=== PATIENT | female | born 1955 | race Caucasian/White ===

== ENCOUNTER → 2016-06-10 | Outpatient (CLI) | payer OTHER ==
--- NOTE | 2016-06-10 14:03 | MOTOR CONDUCTION ---
REQUESTING PHYSICIAN: Erin Villatoro MD CLINICAL DIAGNOSES: Episodes of confusion, question complex partial seizures. EEG DIAGNOSIS: Essentially normal during wakefulness. DESCRIPTION OF TRACING: This EEG was obtained in the laboratory. This was of good technical quality without any significant muscle and movement artifacts. A simultaneous video analysis of patient movement and behavior was obtained. Photic stimulation was performed. Drowsiness and light sleep were not recorded. During wakefulness, there was evidence for a normal appearing background rhythm in the alpha range of up to 10 Hz of maximum frequency and 30 microvolts of maximum amplitude. This was maximum posterior head regions bilaterally symmetrical. Polymorphic mid frequency theta activity was seen over all head regions without clear focal or regional predominance. Anterior head region maximum bilaterally symmetrical low voltage fast activity in the beta range was present. Photic stimulation provokes a modest driving response without a photoparoxysmal or photomyogenic component. At no time during the waking tracing is there evidence for potentially epileptogenic activity in the form of polyspike or spike wave bursts, focal sharp waves or focal spikes. INTERPRETATION: This electroencephalogram is essentially normal during wakefulness without evidence for focal or generalized encephalopathy and without evidence for potentially epileptogenic activity. MTDD
== END | disposition home or self-care (01) ==
LOC: C.NEUR 11:28
PROVIDERS: ATTEND Psychiatry & Neurology Neurology
DX: R41.0 Disorientation, unspecified (principal)

== ENCOUNTER 2022-08-03 05:45 | Observation (INO) ==
--- NOTE | 2022-07-10 11:15 | PAT Medication Instructions ---
Medication Instructions Date of Service July 10, 2022 Home Medications Medication Instructions Recorded diclofenac sodium 1 % topical gel See Rx Instructions topical 09/19/20 (Voltaren) .COMPLEX PRN arthritis #100 grams cyclobenzaprine 5 mg tablet 5 mg PO BID PRN muscle spasm #30 03/02/22 tabs celecoxib 100 mg capsule 100 mg PO BID #180 caps 04/20/22 multivitamin with minerals (Hair,Skin and Nails tablet) 2 tab PO QAM aspirin 81 mg tablet,delayed release 81 mg PO QAM diclofenac sodium 1 % topical gel (Voltaren) See Rx Instructions topical .COMPLEX PRN cyclobenzaprine 5 mg tablet 5 mg PO BID PRN celecoxib 100 mg capsule 100 mg PO BID acetaminophen 500 mg tablet 1,000 mg PO Q6H PRN calcium carbonate 300 mg (750 mg) chewable tablet (Tums) 300 mg PO DAILY PRN famotidine 10 mg tablet 10 mg PO QAM lactase 9,000 unit chewable tablet (Lactaid Fast Act) 18,000 unit PO AC PRN multivitamin with minerals-folic acid 200 mcg chewable tablet (Adult Multivitamin Gummies) 2 tab PO QAM peg 400-propylene glycol (PF) 0.4 %-0.3 % eye drops in a dropperette (Systane (PF)) 1 drp ophthalmic (eye) BID PRN ASK your surgeon for instructions celecoxib 100 mg capsule 100 mg PO BID STOP taking 24 hours before surgery diclofenac sodium 1 % topical gel (Voltaren) See Rx Instructions topical .COMPLEX PRN DO NOT take the morning of surgery multivitamin with minerals (Hair,Skin and Nails tablet) 2 tab PO QAM cyclobenzaprine 5 mg tablet 5 mg PO BID PRN calcium carbonate 300 mg (750 mg) chewable tablet (Tums) 300 mg PO DAILY PRN lactase 9,000 unit chewable tablet (Lactaid Fast Act) 18,000 unit PO AC PRN multivitamin with minerals-folic acid 200 mcg chewable tablet (Adult Multivitamin Gummies) 2 tab PO QAM Take morning of surgery With a small sip of water, OTHERWISE NOTHING TO EAT OR DRINK AFTER MIDNIGHT: aspirin 81 mg tablet,delayed release 81 mg PO QAM (unless directed otherwise by surgeon) acetaminophen 500 mg tablet 1,000 mg PO Q6H PRN(if needed) famotidine 10 mg tablet 10 mg PO QAM peg 400-propylene glycol (PF) 0.4 %-0.3 % eye drops in a dropperette (Systane (PF)) 1 drp ophthalmic (eye) BID PRN(if needed) Take evening before surgery cyclobenzaprine 5 mg tablet 5 mg PO BID PRN(if needed) acetaminophen 500 mg tablet 1,000 mg PO Q6H PRN(if needed) peg 400-propylene glycol (PF) 0.4 %-0.3 % eye drops in a dropperette (Systane (PF)) 1 drp ophthalmic (eye) BID PRN(if needed) Other Notes If you have any questions please call us at [phone] or [phone] or [phone] or [phone]
--- NOTE | 2022-07-15 11:14 | Anesthesiology Consultation ---
Date of Service July 15, 2022 Assessment & Plan (1) Encounter for pre-operative examination: Chart Review Chart Review: Acceptable Risk for Surgery and Patient seen in Pre Admission Testing Upon review of chart and discussion with Dr. Denise- patient is an acceptable candidate for [facility] from anesthesia perspective. Patient is motivated, has good support; pendingsurgeon's office completes [facility] preop requirements- patient may proceed with outpatient TKA. Per PAT appt on 07/15/22, patient denies any recent travel or large group activities. Pt is vaccinated for Covid. Will leave to surgeon's discretion if preop Covid testing needed. Educated on importance of using Covid precautions one week prior to surgery Pt seen by cardio 09/11/21= stable from cardiac standpoint. Recent stress test negative, no significant improvement of generalized fatigue with antianginal meds. Low suspicion fatigue symptoms are cardiac in nature. Continue aspirin. Discussed lovastatin but patient not interested at this time. Repeat echo to evaluate nonsevere valve disease in 2 years. Follow-up in 1 year. History Surgery Operation Date: 08/03/22 12:20 Proposed Procedures p Left Unicompartment Knee - Jeremiah Cary DO s Versus Left Total Knee Arthroplasty - Jeremiah Cary DO Height/Weight Height: 5 ft 3 in Weight: 71.9 kg Allergies Allergy/AdvReac Type Severity Reaction Status Date / Time amitriptyline Allergy Severe severe Verified 07/10/22 10:09 twitching pantoprazole Allergy Intermediate tongue Verified 07/10/22 10:09 ulcers acetaminophen [From Percocet] AdvReac Intermediate Nausea Verified 07/15/22 11:10 doxycycline AdvReac Intermediate Gastrointestinal Verified 07/10/22 10:09 Upset duloxetine [From Cymbalta] AdvReac Intermediate Dizziness Verified 07/10/22 10:09 erythromycin base AdvReac Intermediate Gastrointestinal Verified 07/10/22 10:09 Upset gabapentin AdvReac Intermediate Gastrointestinal Verified 07/10/22 10:09 Upset oxycodone [From Percocet] AdvReac Intermediate Nausea Verified 07/15/22 11:10 pravastatin [From Pravachol] AdvReac Intermediate myalgia Verified 07/10/22 10:09 pregabalin [From Lyrica] AdvReac Intermediate diarrhea, Verified 07/10/22 10:09 abdominal pain lactose AdvReac Mild Gastrointestinal Verified 07/10/22 10:15 Upset Medications Home Medications Medication Instructions Recorded Confirmed Last Taken multivitamin with minerals 2 tab PO QAM 07/11/19 07/10/22 12/31/20 (Hair,Skin and Nails tablet) aspirin 81 mg tablet,delayed 81 mg PO QAM 10/18/19 07/10/22 12/30/20 release diclofenac sodium 1 % topical gel See Rx Instructions topical 09/19/20 07/10/22 12/31/20 (Voltaren) .COMPLEX PRN arthritis #100 grams cyclobenzaprine 5 mg tablet 5 mg PO BID PRN muscle spasm #30 03/02/22 07/10/22 Unknown tabs celecoxib 100 mg capsule 100 mg PO BID #180 caps 04/20/22 07/10/22 Unknown acetaminophen 500 mg tablet 1,000 mg PO Q6H PRN Pain 07/10/22 07/10/22 Unknown calcium carbonate 300 mg (750 mg) 300 mg PO DAILY PRN Acid Reflux 07/10/22 07/10/22 Unknown chewable tablet (Tums) famotidine 10 mg tablet 10 mg PO QAM 07/10/22 07/10/22 Unknown lactase 9,000 unit chewable tablet 18,000 unit PO AC PRN Lactose 07/10/22 07/10/22 Unknown (Lactaid Fast Act) Intolerance multivitamin with minerals-folic 2 tab PO QAM 07/10/22 07/10/22 Unknown acid 200 mcg chewable tablet (Adult Multivitamin Gummies) peg 400-propylene glycol (PF) 0.4 1 drp ophthalmic (eye) BID PRN Dry 07/10/22 07/10/22 Unknown %-0.3 % eye drops in a dropperette Eye(S) (Systane (PF)) Past Medical History Medical History (Updated 07/16/22 @ 09:03 by Ashlee Laws PA-C) Brain aneurysm (~2016) Noted incidentally after CVA Hx of repair 2017 (post coiling) Dysphagia Chronic - has had EGD in the past - stable Failed spinal cord stimulator DEVICE REMOVED Fibromyalgia GERD (gastroesophageal reflux disease) Minimally controlled - symptoms fluctuate Heterozygous factor V Leiden mutation Per records - seen by heme in [place] 2019- no additional testing or change in therapy needed. On ASA 81mg History of COVID-19 diagnosed x2--05/2019 and 06/2020--mild symptoms, no symptoms now Hypercholesteremia Hypertension Irregular heart beat FOLLOWS WITH DR. SANCHEZ No issues noted per 09/2021 cardio office note Postlaminectomy syndrome of lumbosacral region Follow[place] [facility] [place] [facility] Stroke 04/2016 ("SLIGHT CONFUSION AT TIMES") Thoracic back pain Exercise / Class Metabolic Activity II 4-5 Yardwork/Stairs/Walk up hill (one flight of stairs - no chest pain or SOB) Past Family History Family History Father Family history of reaction to anesthesia required more anesthesia Brother Family history of reaction to anesthesia becomes violent Other Cancer FH: testicular cancer Heart disease Hypertension Leukemia Myocardial infarction Denies family history of Ovarian cancer Prostate cancer Breast cancer Colorectal cancer Past Surgical History Surgical History H/O eye surgery RT/LEFT EYE TO "RELEASE PRESSURE" History of bilateral tubal ligation History of cardiac cath 02/2006 @ [place]--NO STENTS History of cerebral aneurysm repair (~2016) 2017 LEFT CRANIAL CLIP History of colonoscopy History of esophagogastroduodenoscopy (EGD) 12/2020 @ [facility] History of hysterectomy History of lumbar fusion (~2002) History of tooth extraction Nausea and vomiting after administration of anesthetic agent Status post epidural steroid injection Past Anesthesia History No Hx of Anesthesia Complications (with exception to PONV ) and No Family Hx of Anesthesia Complications (with exception to father (needs more anesthesia to be put under); brother combative post op ) History of PONV History of PONV and Hx of Motion Sickness Social History Smoking Status: Never smoker Do You Dip or Chew Tobacco: No Hx Alcohol Use: No Hx Substance Use: No substance use type: does not use Review of Systems Hx of snoring - no witnesssed apnea - no hx of sleep study Patient denies chest pain, shortness of breath, dyspnea on exertion, cough, wheezing, palpitations. No hx of seizures, UT. No hx of blood clots or blood transfusions Physical Exam Vital Signs VITALS BP 142/83 P 73 TEMP 98.0 SP02 96% RESP 16 Constitutional no acute distress ENMT Mouth: no TMJ clicking Thyromental Distance: < 3.5 Finger Breadths (3.0) Mallampati Class: III Missing molars and side teeth Cap to molar Neck neck extension not limited Respiratory normal respiratory effort; no respiratory distress Auscultation: lungs clear to auscultation bilaterally; no wheezes Cardiovascular Rate/Rhythm: regular rate and regular rhythm Heart Sounds: + murmur (II/ murmur ) Vessels: no carotid bruit Musculoskeletal Spine: no pain with cervical ROM Extremities: extremities normal to inspection Psychiatric Orientation: alert Lab Results Anesthesia Preop Results Results Anesthesia Widget: WBC 5.64 K/ul (4.8-10.8) 07/15/22 Hgb 14.2 g/dl (12.0-16.0) 07/15/22 Hct 43.3 % (37.0-47.0) 07/15/22 Plt 282 K/uL (130-400) 07/15/22 Na 138 mmol/L (136-145) 07/15/22 K 4.8 mmol/L (3.5-5.1) 07/15/22 Cl 102 mmol/L (98-107) 07/15/22 CO2 32 mmol/L (21-32) 07/15/22 BUN 14 mg/dl (6-23) 07/15/22 Creat 0.70 mg/dl (0.6-1.2) 07/15/22 Glucose Level 88 mg/dl (70-99(Fasting)) 07/15/22 PT 10.2 Seconds (9.0-12.0) 07/15/22 PTT 26.8 Seconds (21.0-31.0) 07/15/22 INR 1.0 (0.9-1.1) 07/15/22 Blood Type O Positive 07/15/22 Antibody Screen NEGATIVE 07/15/22 Testing Electrocardiogram Date: 07/15/22 Findings: + NSR @ (62bpm ) Rightward axis Chest X-Ray Date: 07/15/22 Findings: + NAD Echocardiogram Date: 01/27/19 EF: 55% LV Function: normal Other Findings: + diastolic dysfunction (Grade I DD ) Valvular Disease: + MR (mild ) Mild AR Stress Test Date: 04/15/21 SUMMARY: 1. Negative myocardial perfusion study for significant exercise-induced ischemia. 2. Small, minimally reversible inferolateral perfusion defect likely artifact, less likely single-vessel circumflex disease. Small apical anterior/septum defect likely artifact. 3. Abnormal exercise ECG. [address] depressions in leads II, III, aVF. 4. Average functional capacity. Exercised 6: 25, achieving 8.2 METS. No exercise-induced chest pain. 5. Normal LV size and function. LVEF 78% with no regional wall motion abnormalities. 6. Compared with prior stress echo 11/09/2019: Exercise capacity unchanged. EKG findings unchanged. Other Testing Neck MRA 01/06/21= No significant stenosis, occlusion, or dissection identified within the carotid or vertebral arteries. Head MRA 01/06/21= Unremarkable MR angiogram of the brain. Indeterminate artifact is noted in the left temporal fossa. This obscures evaluation of the distal left middle cerebral artery. Brain MRI 01/06/21= No acute intracranial abnormality is identified. Postoperative change. Correlate with the surgical history. There are numerous foci of T2 signal abnormality seen throughout the subcortical and perive ntricular white matter. This is nonspecific and could represent microangiopathic change. This could also be seen with a demyelinating disorder or possibly an infectious etiology such as Lyme disease. Clinical correlation will be essential. COVID-19 Risk Screen Screening Information COVID-19 Screen Date: 07/15/22 Exposure 21 Days Family/Household +COVID Last 21 Days: No Exposure 10 Days Any COVID Exposure Last 10 Days: No Symptoms Last 10 Days Experienced COVID Sx Last 10 Days: No + COVID 0-90 Days COVID + in Last 0-90 Days: No Risk Plan COVID Risk Plan: No Risk Identified Patient Education COVID Preop Screening Education Complete: Yes
[2022-08-03] MEDS ORDERED: LR 60ML/HR IV SCH (06:00)
[2022-08-03] MEDS ORDERED: ceFAZolin 2000MG 2,000 MG/15 ML SYR IV SCH (06:00)
[2022-08-03] MEDS ORDERED: GABAPENTIN 300 MG CAP PO SCH (06:00)
[2022-08-03] MEDS ORDERED: ORTHO JOINT MIX INFIL SCH (06:00)
[2022-08-03] MEDS ORDERED: LR 500ML BOLUS, THEN 15ML/HR IV SCH (06:00)
[2022-08-03] MEDS ORDERED: dexAMETHasone 4 MG TAB PO SCH (06:00)
[2022-08-03] MEDS ORDERED: ACETAMINOPHEN 500 MG TAB PO SCH (06:00)
[2022-08-03] MEDS ORDERED: TRANEXAMIC ACID 1,000 MG **IV Intra-op IV SCH (06:00)
[2022-08-03] MEDS ORDERED: FAMOTIDINE 20 MG TAB PO SCH (06:00)
[2022-08-03] MEDS ORDERED: TRANEXAMIC ACID 1,000 MG **IV Pre-op IV SCH (06:00)
--- NOTE | 2022-08-03 06:24 | History & Physical Report ---
Date of Service August 03, 2022 Assessment & Plan (1) Left knee DJD: We will proceed with a left partial knee replacement surgery. Postoperatively she will be in our outpatient joint protocol. She will be started on aspirin for DVT prophylaxis and plans to see [facility] the following day. History of Present Illness Chief Complaint: Osteoarthritis of the left knee. Primary Care Provider: Jeremiah DiazDO Deleon is a pleasant 67-year-old female who stepped awkwardly about 8 months ago and began having significant left knee pain. All of her pain was located on the medial side. She has been seeing my partner Dr. Hatfield. MRI shows a complex medial meniscus tear and a subchondral fracture of the medial tibial plateau. More recent x-rays have shown more collapse of the medial compartment. She has tried multiple injections including viscosupplementation. She has done therapy. She is taking anti-inflammatories without relief. After failing conservative treatment, she has elected proceed with a left partial knee replacement surgery. Allergies Allergy/AdvReac Type Severity Reaction Status Date / Time amitriptyline Allergy Severe severe Verified 08/03/22 05:58 twitching pantoprazole Allergy Intermediate tongue Verified 08/03/22 05:58 ulcers acetaminophen [From Percocet] AdvReac Intermediate Nausea Verified 08/03/22 05:58 doxycycline AdvReac Intermediate Gastrointestinal Verified 08/03/22 05:58 Upset duloxetine [From Cymbalta] AdvReac Intermediate Dizziness Verified 08/03/22 05:58 erythromycin base AdvReac Intermediate Gastrointestinal Verified 08/03/22 05:58 Upset gabapentin AdvReac Intermediate Gastrointestinal Verified 08/03/22 05:58 Upset oxycodone [From Percocet] AdvReac Intermediate Nausea Verified 08/03/22 05:58 pravastatin [From Pravachol] AdvReac Intermediate myalgia Verified 08/03/22 05:58 pregabalin [From Lyrica] AdvReac Intermediate diarrhea, Verified 08/03/22 05:58 abdominal pain lactose AdvReac Mild Gastrointestinal Verified 07/10/22 10:15 Upset Home Medications Medication Instructions Recorded Confirmed Type multivitamin with minerals 2 tab PO QAM 07/11/19 08/03/22 History (Hair,Skin and Nails tablet) aspirin 81 mg tablet,delayed 81 mg PO QAM 10/18/19 08/03/22 History release diclofenac sodium 1 % topical gel See Rx Instructions topical 09/19/20 07/10/22 Rx (Voltaren) .COMPLEX PRN arthritis #100 grams cyclobenzaprine 5 mg tablet 5 mg PO BID PRN muscle spasm #30 03/02/22 07/10/22 Rx tabs celecoxib 100 mg capsule 100 mg PO BID #180 caps 04/20/22 08/03/22 Rx acetaminophen 500 mg tablet 1,000 mg PO Q6H PRN Pain 07/10/22 08/03/22 History calcium carbonate 300 mg (750 mg) 300 mg PO DAILY PRN Acid Reflux 07/10/22 07/10/22 History chewable tablet (Tums) famotidine 10 mg tablet 10 mg PO QAM 07/10/22 08/03/22 History lactase 9,000 unit chewable tablet 18,000 unit PO AC PRN Lactose 07/10/22 08/03/22 History (Lactaid Fast Act) Intolerance multivitamin with minerals-folic 2 tab PO QAM 07/10/22 08/03/22 History acid 200 mcg chewable tablet (Adult Multivitamin Gummies) peg 400-propylene glycol (PF) 0.4 1 drp ophthalmic (eye) BID PRN Dry 07/10/22 08/03/22 History %-0.3 % eye drops in a dropperette Eye(S) (Systane (PF)) Past Med/Surg History Medical History Brain aneurysm (~2016) Noted incidentally after CVA Hx of repair 2016 (post coiling) Dysphagia Chronic - has had EGD in the past - stable Failed spinal cord stimulator DEVICE REMOVED Fibromyalgia GERD (gastroesophageal reflux disease) Minimally controlled - symptoms fluctuate Heterozygous factor V Leiden mutation Per records - seen by heme in [place] 2018- no additional testing or change in therapy needed. On ASA 81mg History of COVID-19 diagnosed x2--05/2019 and 06/2020--mild symptoms, no symptoms now Hypercholesteremia Hypertension Irregular heart beat FOLLOWS WITH DR. SANCHEZ No issues noted per 09/2021 cardio office note Postlaminectomy syndrome of lumbosacral region [place] [facility] [place] [facility] Stroke 04/2016 ("SLIGHT CONFUSION AT TIMES") Thoracic back pain Surgical History H/O eye surgery RT/LEFT EYE TO "RELEASE PRESSURE" History of bilateral tubal ligation History of cardiac cath 02/2006 @ [facility]--NO STENTS History of cerebral aneurysm repair (~2016) 2017 LEFT CRANIAL CLIP History of colonoscopy History of esophagogastroduodenoscopy (EGD) 12/2020 @ [facility], [place] History of hysterectomy History of lumbar fusion (~2002) History of tooth extraction Nausea and vomiting after administration of anesthetic agent Status post epidural steroid injection Family History Father Family history of reaction to anesthesia required more anesthesia Brother Family history of reaction to anesthesia becomes violent Other Cancer FH: testicular cancer Heart disease Hypertension Leukemia Myocardial infarction Denies family history of Ovarian cancer Prostate cancer Breast cancer Colorectal cancer Social History Smoking Status: Never smoker Second Hand Exposure: No; Do You Dip or Chew Tobacco: No; Tobacco Cessation Education Requested by Patient: No Hx Alcohol Use: No Hx Substance Use: No Preferred Language: R[place] Communication Ability: Effective Visual Impairment: Diminished Hearing Ability: Hard of Hearing 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 Beliefs That Will Affect Care: None marital status: / Current Living Situation: Alone current occupational status: retired Other Information That Helps Us Care for You: No Feels Safe at Home: Yes Safety Concerns: Feels Safe At This Time Childhood Exposure to Second-Hand Smoke: Yes Diet Comment: meditarian diet caffeine: Yes Dental Care, Regularly: No Physical Activity Frequency: 3-4 Times per Week Physical Activity Frequency Comment: walk and gardening Seatbelt Use: always Sunscreen Use: Yes Do you think of yourself as: straight/heterosexual Assistive Devices: Glasses Review of Systems All systems reviewed & are unremarkable except as noted in HPI & below. Physical Exam On physical examination of the left knee, she has tenderness palpation of the distal medial femoral condyle and over the medial joint line. She has full range of motion and a trace effusion.. Constitutional WD/WN, vitals as above Eyes PERRL, conjunctivae normal, anicteric sclerae ENMT external ear and nose normal, oropharynx normal Neck trachea midline, no thyromegaly Respiratory normal respiratory effort, lungs clear to auscultation Cardiovascular RRR, no murmur, no edema Gastrointestinal (Abdomen) normal bowel sounds, soft, nontender, no hepatosplenomegaly Skin no rashes, warm and dry Psychiatric A+Ox3, euthymic affect Results & Data Results & Data Laboratory Results . Diagnostic Findings X-rays of the left knee show slight collapse of the medial sided joint space. MRI of the left knee shows extensive medial compartmental arthritis with edema in the distal medial femoral condyle.. PG Care Time/CCT Total # of Minutes Spent Total Time Spent with Patient: Total time spent is greater than 50% in coordination of care (as documented) at patient's floor/unit and/or counseling patient: Coding Level of Care Code None Diagnoses Left knee DJD M17.12
[2022-08-03] MEDS ORDERED: MEPIVACAINE HCL 1.5% 30 ML VIAL ONE (06:29)
[2022-08-03] MEDS ORDERED: ROPIVACAINE 0.5% 5 MG/ML 30 ML VIAL ONE (06:29)
[2022-08-03] MEDS ORDERED: MIDAZOLAM HCL 1 MG/ML 2ML VIAL ONE (07:09)
[2022-08-03] MEDS ORDERED: ORTHO JOINT ANESTHETIC ONE (07:54)
[2022-08-03] MEDS ORDERED: PROPOFOL IV EMULSION 10 MG/ML 20 ML VIAL IV ONE (09:33)
[2022-08-03] MEDS ORDERED: ONDANSETRON INJ 2 MG/ML 2 ML VIAL ONE (09:33)
[2022-08-03] MEDS ORDERED: GLYCOPYRROLATE 0.2 MG/ML VIAL ONE (09:33)
[2022-08-03] MEDS ORDERED: LIDOCAINE 2% MPF LOCAL 5 ML VIAL ONE (09:33)
[2022-08-03] MEDS ORDERED: KETOROLAC 30 MG/ML VIAL ONE (09:33)
--- NOTE | 2022-08-03 09:35 | Operative Report ---
PG Post Operative Report Pre & Post Diagnosis Operation Date: 08/03/22 08:10 Pre-Op Diagnosis: Left Knee Degenerative Joint Disease Post-Op Diagnosis: Left Knee Degenerative Joint Disease I identified the patient and participated in the time-out.: Yes Procedure Operation Date: 08/03/22 08:10 Actual Procedures p Left Unicompartmental Knee Arthroplasty(Left) - Jeremiah Cary DO Surgeon Jeremiah Cary DO Compound Finisher Jeremiah Gibbs PA-C Estimated Blood Loss 30 Findings Consistent with Post-Op Diagnosis Specimens Left femoral and tibial bone Description of Procedure Implants used: I used a Yamileth persona partial knee replacement with a size 2 femur, a size D tibia, and a 10 mm polyethylene insert. All components were cemented with Biomet cement. On August 03, 2022 Adrienne arrived at [facility] for the above procedure. She was seen in the preoperative holding area and the operative extremity was identified and signed. She was given a preoperative antibiotic, an abductor nerve block, and a spinal anesthetic. She was taken back to the operating room and laid on the table in supine position. She was given basic sedation. The left knee was prepped and draped in sterile fashion. A timeout was done. The patient and the operative extremity was properly identified. A midline incision was made just medial to the patella. Dissection was taken down through the fascia. A mid vastus arthrotomy was used. Half of the fat pad was excised. The medial meniscus was excised. There was arthritis in the medial compartment. I did not see any arthritis in the lateral or patellofemoral compartments. The ACL was intact. The decision was made to proceed with unicompartmental knee arthroplasty. An external tibial guide was placed. 6 mm was resected off the distal tibia. The leg was then placed in full extension. A distal femoral cutting block was then pinned in the place and the distal femoral cut was made. The knee was then brought into flexion. The femur measured to be a size 2. A size 2 femoral resection guide was pinned to the distal femur. The posterior cut was made and the chamfer cut was made. 2 drill holes were then placed for the implant. The trial guide was removed. The tibia was exposed. The tibia measured to be a size D. Thus size D trial guide was then impacted into place. 2 peg holes were drilled. The femoral trial was then impacted into place. A 10 mm spacer was trialed. The knee was brought through full range of motion and felt to be stable. The trial implants were removed. The final size 2 femur and size D tibia were then cemented into place with Biomet cement. Once cement had hardened a size 10 polyethylene insert was then snapped into place. The knee was brought through full range of motion and felt to be stable. The arthrotomy was closed with #1 Vicryl suture. Skin was closed with 2-0 Vicryl, 3 oh VueLock suture, and zhou. She was then placed in a soft compressive dressing. She was then transferred to a [facility]. She was taken to the postanesthesia care unit in stable condition. She tolerated the procedure well. Jeremiah Gibbs PA-C, was present for the entire procedure. He was critical for patient positioning, prepping, draping, retraction exposure, wound closure and application of sterile dressing. I attest to the content of the Intraoperative Record and any orders documented therein. Any exceptions are noted below.
[2022-08-03] MEDS ORDERED: ATROPINE SULFATE 0.1 MG/ML 10ML SYR IV PRN (09:42)
[2022-08-03] MEDS ORDERED: fentaNYL citrate PF 100 MCG/2 ML VIAL IV PRN (09:42)
[2022-08-03] MEDS ORDERED: ONDANSETRON INJ 2 MG/ML 2 ML VIAL IV PRN (09:42)
[2022-08-03] MEDS ORDERED: ePHEDrine sulfate 50 MG/ML AMP IV PRN (09:42)
[2022-08-03] MEDS ORDERED: HYDROCODONE/ACETAMOPHEN 5/325MG TAB PO PRN (09:54)
--- NOTE | 2022-08-03 10:36 | XRay Report ---
TWO VIEWS LEFT KNEE CLINICAL HISTORY: Postoperative examination. FINDINGS: AP and crosstable lateral portable views of the left knee are obtained. A hemiarthroplasty in the medial compartment of the left knee is in near anatomic alignment. No acute fracture is seen. There are expected postoperative changes around the knee including skin clips, a surgical drain, sof t tissue edema, and subcutaneous gas. IMPRESSION: Expected postoperative findings status post hemiarthroplasty of the left knee. No acute f racture is seen. ACT 112: Negative or not required by law. Electronically signed by: Everton Umaña M.D. 08/03/2022 10:35 AM
--- NOTE | 2022-08-03 10:37 | Anesthesiology Progress Note ---
Date of Service August 03, 2022 Anesthesia Post Procedure Vital Signs Vital Signs: Temp Pulse Pulse Resp BP Pulse Ox O2 Del Method 08/03/22 10:22 59 L 17 142/71 H 98 Room Air 08/03/22 10:10 71 16 169/70 H 98 Oxymask 08/03/22 10:00 70 15 142/72 H 100 Oxymask 08/03/22 09:52 36.8 C 80 12 145/67 H 94 Oxymask 08/03/22 06:03 36.3 C L 77 20 172/90 H 95 Room Air O2 Flow Rate 08/03/22 10:22 08/03/22 10:10 2 08/03/22 10:00 3 08/03/22 09:52 5 08/03/22 06:03 Pain Intensity Left Knee: Pain Intensity: 0 Transfer of Care Handoff Completed per policy Notes Mental Status: alert / awake / arousable and participated in evaluation Patient Amnestic to Procedure: Yes Nausea / Vomiting: adequately controlled Pain: adequately controlled Airway Patency, RR, SpO2: stable & adequate BP & HR: stable & adequate Hydration State: stable & adequate Neuraxial Anesthesia: was administered and sensory block is resolving Anesthetic Complications: no major complications apparent and Pt Satisfied with anesthetic care
[2022-08-03] MEDS ORDERED: SODIUM CHLORIDE 0.9% 1000ML 1,000 ML IV SCH (17:58)
[2022-08-03] MEDS ORDERED: NALOXONE HCL 0.4 MG/1 ML VIAL/CARP IV PRN (17:58)
[2022-08-03] MEDS ORDERED: bisacodyL 10 MG SUPP PR PRN (17:58)
[2022-08-03] MEDS ORDERED: METOCLOPRAMIDE HCL INJ 5 MG/ML 2 ML VIAL IV PRN (17:58)
[2022-08-03] MEDS ORDERED: MAGNESIUM HYDROXIDE SUSP 30 ML UDC PO PRN (17:58)
[2022-08-03] MEDS ORDERED: Nursing to Pharmacy Communication SCH (18:45)
[2022-08-03] MEDS: ASPIRIN 81 MG ECTAB PO SCH (20:54)
[2022-08-03] MEDS: DOCUSATE SODIUM 100 MG CAP PO SCH (20:54)
[2022-08-03] MEDS: KETOROLAC TROMETHAMINE 15 MG/ML VIAL IV SCH (20:54)
[2022-08-03] MEDS ORDERED: SENNA 8.6 MG TAB PO SCH (21:00)
[2022-08-03] MEDS: ceFAZolin 1000MG 1,000 MG/7.5 ML SYR IV SCH (21:34)
[2022-08-04] MEDS: KETOROLAC TROMETHAMINE 15 MG/ML VIAL IV SCH ×3 (02:31→13:38)
[2022-08-04] MEDS: ceFAZolin 1000MG 1,000 MG/7.5 ML SYR IV SCH ×2 (06:32→07:19)
--- NOTE | 2022-08-04 06:49 | Orthopedic Progress Note ---
Date of Service August 04, 2022 Assessment & Plan (1) Status post left partial knee replacement: Overall she is doing very well. She is not having much pain in the left knee. The nerve block is worn off. She is on aspirin for DVT prophylaxis. She will be seen by physical therapy this morning. She can then be discharged home. She will follow-up orthopedics in 2 weeks. Tamara Deleon was seen and examined at bedside this morning. Overall she is doing much better. The nerve block is worn off. She can easily do a straight leg raise. She is feeling good and has no complaints.. Review of Systems All systems reviewed & are unremarkable except as noted in HPI & below. Physical Exam On physical examination of the left knee, the dressing is clean and dry. Her leg is out full extension. She is able to do a straight leg raise.. Results & Data Results & Data Laboratory Results . Diagnostic Findings Postoperative x-rays of the left knee show the prosthesis to be in anatomic alignment without any evidence of fracture, screws, or loosening. PG Care Time/CCT Total # of Minutes Spent Total Time Spent with Patient: Total time spent is greater than 50% in coordination of care (as documented) at patient's floor/unit and/or counseling patient: Coding Level of Care Code 41215 Post Operative Follow-Up Diagnoses Status post left partial knee replacement Z96.652
--- NOTE | 2022-08-04 06:50 | Discharge Summary ---
Date of Service August 04, 2022 Admission HPI (Per Admitting) Adrienne is a pleasant 67-year-old female who stepped awkwardly about 8 months ago and began having significant left knee pain. All of her pain was located on the medial side. She has been seeing my partner Dr. Hatfield. MRI shows a complex medial meniscus tear and a subchondral fracture of the medial tibial plateau. More recent x-rays have shown more collapse of the medial compartment. She has tried multiple injections including viscosupplementation. She has done therapy. She is taking anti-inflammatories without relief. After failing conservative treatment, she has elected proceed with a left partial knee replacement surgery. Admission Exam (Per Admitting) On physical examination of the left knee, she has tenderness palpation of the distal medial femoral condyle and over the medial joint line. She has full range of motion and a trace effusion.. Principal Diagnosis Same as "Discharge Diagnosis" noted below under Discharge Instructions. Discharge Exam On physical examination of the left knee, the dressing is clean and dry. Her leg is out full extension. She is able to do a straight leg raise.. Discharge Data Procedures Performed Operation Date: 08/03/22 08:10 Actual Procedures p Left Unicompartmental Knee Arthroplasty(Left) - Jeremiah Cary DO Ordered Studies 08/03/22 05:00 US - OR guided needle placemen Routine Hospital Course (1) Status post left partial knee replacement: On August 03, [address] [facility] and underwent a left partial knee replacement without complication. Postoperatively she was started on aspirin for DVT prophylaxis. She was originally part of her outpatient joint protocol. Unfortunately, the nerve block was not wearing off in her left leg. She continued to have significant weakness of her quad throughout the day. She was then admitted to the hospital for observation. Over the night, the nerve block had worn off. She regained strength in her leg. She was seen by physical therapy. She was able to participate with ambulation and range of motion exercises. She was then discharged home. She will follow with orthopedics in 2 weeks. PG Care Time/CCT Total # of Minutes Spent Total Time Spent with Patient: Total time spent is greater than 50% in coordination of care (as documented) at patient's floor/unit and/or counseling patient: Discharge Plan Discharge Items Patient Disposition: Home - Home Health Services Reason For Visit: DJD Left Knee Discharge Diagnosis: same as above Activity: Per Instructions section Non-emergency contact: Surgeon Call non-emergency contact if: your temperature is above 101.5, your wound has increased redness and your wound has increased drainage Follow-up/Referrals: [facility] [Outside] (as per surgeon's office ) Jeremiah Diaz DO [Primary Care Provider] - Jeremiah Cary DO [Physician] - Diet: Regular Addtl Attending Provider Instructions: Activity and Therapy Recommendations: * If you are using [facility] then therapy will be provided at your home until they feel you have accomplished all of your goals. * If you are using [facility] then Physical Therapy will be provided until they feel you are ready to start Outpatient Physical Therapy. * If you are not using home therapy then Outpatient Physical Therapy should start about 3-5 days from your day of surgery. Therapy will last about 6-10 weeks * It is important not to put a pillow under your knee when you are relaxing or sleeping. It is just as important to make sure you are getting your knee perfectly straight as it is to regain your knee bend. * You were shown a series of exercises in the hospital. Do these exercises three times each day including the exercises you were shown in physical therapy. * Get up and walk several times each day. For the first four weeks, try not to stand or walk for more than one hour at a time. If you do stand or walk for more than one hour, you will not hurt anything, but your leg will likely swell. * As you feel comfortable, you may change from the walker or crutches to a cane and then to independent walking. Medications: * Narcotic You will likely be sent home from the hospital with a prescription for the narcotic pain medication that worked best throughout your stay. * Aspirin Most patients will be required to take Aspirin 81mg twice a day for 6 weeks after surgery. This is obtained [id number] and a prescription is not necessary. * Other medications may be prescribed for specific circumstances. If you have any questions, please call the office at . * Resume previous home medications unless otherwise instructed TEDs/Elastic Stockings: The white elastic stockings help limit swelling and prevent blood clots from forming in your legs.~ The more you wear them, the more they work. Wear them for six weeks. Dressing Care: The dressing can be changed after physical therapy on postop day #1. Daily dry dressing changes for a few days, especially if the incision is still draining some. If the incision is not draining then you may leave the zhou open to air. If there is a little bit of drainage or if the zhou are getting stuck on your clothing then cover the incision with a dry dressing. The zhou will be removed at your 2 week follow-up appointment. Showering: You may shower 5 days from the day of surgery as long as the incision is no longer draining. You may shower with the zhou exposed. Let soapy water run over the zhou and pat them dry. Do not scrub or soak the incision. Things To Watch For: * Drainage from the incision site that occurs more than one week after your surgery. * Increased redness at the incision site. * Fever above 102 degrees Fahrenheit. * Unusual chest pain or shortness of breath. * Call [facility] at with any of the above problems Follow-Up Visit: Follow-up with Dr. Cary's PA (Jeremiah Gibbs) 2-3 weeks after your day of surgery. He will remove your zhou and answer any questions. If you have any additional questions or concerns, Dr Cary is usually in the office at the same time and will be available An appointment was probably scheduled when you signed-up for surgery in the office. If you have any questions call Office Instructions: More detailed instructions as well as Frequently Asked Questions were provided in a folder by our office when you signed-up for surgery. Please review these instructions when you get home. If you have any further questions or concerns, please feel free to call the office at [phone] Pending Studies at Discharge: No Stand-Alone Forms: Anesthesia/Sedation, Adult, [facility], Smoking Cessation Medications and DC Order Prescriptions: New hydrocodone-acetaminophen 5-325 mg tablet 1 tab PO Q6H PRN (Reason: pain) Qty: 30 0RF Continued diclofenac sodium [Voltaren] 1 % gel See Rx Instructions TOP .COMPLEX PRN (Reason: arthritis) Qty: 100 2RF Rx Instructions: topical PRN; cyclobenzaprine 5 mg tablet 5 mg PO BID PRN (Reason: muscle spasm) Qty: 30 0RF celecoxib 100 mg capsule 100 mg PO BID Qty: 180 1RF multivitamin with minerals [Hair,Skin and Nails] Tablet 2 tab PO QAM aspirin 81 mg tablet,delayed release (DR/EC) 81 mg PO QAM famotidine 10 mg Tablet 10 mg PO QAM Adult Multivitamin Gummies 200 mcg tablet,chewable 2 tab PO QAM calcium carbonate [Tums] 300 mg (750 mg) Tablet,Chewable 300 mg PO DAILY PRN (Reason: Acid Reflux) Lactaid Fast Act 9,000 unit Tablet,Chewable 18,000 unit PO AC PRN (Reason: Lactose Intolerance) Rx Instructions: administer with first bite of dairy food Systane (PF) 0.4-0.3 % Dropperette 1 drp OPHTHALMIC (EYE) BID PRN (Reason: Dry Eye(S)) Discontinued acetaminophen 500 mg Tablet 1,000 mg PO Q6H PRN (Reason: Pain) Krames/Other Patient Handouts: DVT Post Op Prevention Admission Data Admit Date/Time: 08/03/22 15:54 Attending Provider: Jeremiah Cary Admit Provider: Jeremiah Cary Primary Care Provider: Jeremiah Diaz
[2022-08-04] MEDS: ASPIRIN 81 MG ECTAB PO SCH (08:00)
[2022-08-04] MEDS: DOCUSATE SODIUM 100 MG CAP PO SCH (08:00)
[2022-08-04] MEDS ORDERED: dexAMETHasone 4 MG TAB PO SCH (08:00)
[2022-08-04] MEDS ORDERED: FAMOTIDINE 10 MG TABLET PO SCH (09:00)
[2022-08-04] MEDS ORDERED: MULTIVITAMIN TAB PO SCH (09:00)
[2022-08-04] MEDS: oxyCODONE HCL IR 5 MG TAB (IMMEDIATE RELEASE) PO PRN ×2 (09:11→13:37)
== END 2022-08-04 14:06 | disposition home health service (06) ==
LOC: ASU 05:45 → 3E 05:45